=== PATIENT | female | born 2000 | race Caucasian/White ===

== ENCOUNTER 2020-03-25 20:27 | Emergency (ER) | payer BC ==
--- NOTE | 2020-03-25 20:51 | EDM.PDOC ---
ED HPI GENERAL MEDICAL PROBLEM - General Chief Complaint: ENT Problem Stated Complaint: throat pain Time Seen by Provider: 03/25/20 20:32 Source of Information: Reports: Patient History Limitations: Reports: No Limitations - History of Present Illness INITIAL COMMENTS - FREE TEXT/NARRATIVE: Two week history of pharyngitis. Hx of frequent sore throats/tonsillitis. Initially tested for strep and was negative. Pain has continued. Was seen in [place] today and given Keflex but no additional testing performed. Came to our facility crying, saying her throat is swollen and painful. Denies fevers. Denies GI changes. ROS otherwise unremarkable. Denies chance of . Treatments [employer]CIAL [employer]: Reports: NSAIDS - Related Data Allergies Allergy/AdvReac Type Severity Reaction Status Date / Time No Known Allergies Allergy Verified 03/25/20 20:29 Home Meds: Home Meds Venlafaxine [Effexor XR] 1 cap PO DAILY 03/25/20 [History] cephALEXin [Keflex] 500 mg PO TID 03/25/20 [History] hydrOXYzine HCL [hydrOXYzine] 1 tab PO QID PRN 03/25/20 [History] Past Medical History HEENT History: Reports: Other (See Below) (frequent tonsilitis.) Psychiatric History: Reports: Anxiety, Depression Social & Family History - Tobacco Use Smoking Status *Q: Never Smoker - Caffeine Use Caffeine Use: Reports: None - Alcohol Use Alcohol Use History: No - Recreational Drug Use Recreational Drug Use: No Drug Use in Last 12 Months: No ED ROS GENERAL - Review of Systems Review Of Systems: See Below Constitutional: Reports: Decreased Appetite. Denies: Fever, Chills, Malaise, Weakness, Fatigue, Night Sweats, Diaphoresis HEENT: Reports: Throat Pain, Throat Swelling. Denies: Dental Pain, Ear Discharge, Ear Pain, Eye Discharge, Sinus Problem, Vertigo, Vision Change Respiratory: Reports: No Symptoms Cardiovascular: Reports: No Symptoms GI/Abdominal: Reports: No Symptoms : Reports: No Symptoms Musculoskeletal: Reports: No Symptoms Skin: Reports: No Symptoms Neurological: Reports: No Symptoms Psychiatric: Reports: No Symptoms Hematologic/Lymphatic: Reports: No Symptoms ED EXAM, GENERAL - Physical Exam Exam: See Below Exam Limited By: No Limitations General Appearance: Alert, WD/WN, Other (tearful) Eye Exam: Bilateral Eye: EOMI, PERRL Ears: Normal External Exam, Normal Canal, Hearing Grossly Normal, Normal TMs Nose: Normal Inspection Throat/Mouth: Normal Lips, Normal Voice, No Airway Compromise, Other (tonsils red/swollen, uvula midline, small amount exudate noted. ) Head: Atraumatic, Normocephalic Neck: Normal Inspection, Supple, Non-Tender, Full Range of Motion. No: Lymphadenopathy (L), Lymphadenopathy (R) Respiratory/Chest: No Respiratory Distress, Lungs Clear, Normal Breath Sounds, No Accessory Muscle Use Cardiovascular: Regular Rate, Rhythm, No Edema, No Murmur GI/Abdominal: Normal Bowel Sounds, Soft, Non-Tender, No Distention (Female) Exam: Deferred Rectal (Female) Exam: Deferred Back Exam: Normal Inspection Extremities: Normal Range of Motion, Non-Tender, No Pedal Edema, Slow Capillary Refill Neurological: Alert, Oriented, CN II-XII Intact, Normal Cognition, Normal Gait, No Motor/Sensory Deficits Psychiatric: Normal Affect, Normal Mood Skin Exam: Warm, Dry, Intact, Normal Color Course - Vital Signs Last Recorded V/S: Last Vital Signs Temp 37.6 C 03/25/20 21:41 Pulse 78 03/25/20 21:41 Resp 16 03/25/20 21:41 BP 117/76 03/25/20 21:41 Pulse Ox 99 03/25/20 21:41 - Orders/Labs/Meds Orders: Active Orders 24 hr Category Date Time Status CULTURE STREP A CONFIRMATION [RM] Stat Lab 03/25/20 21:00 Results STREP SCRN A RAPID W CULT CONF [RM] Stat Lab 03/25/20 20:38 Ordered UA W/MICROSCOPIC [URIN] Stat Lab 03/25/20 21:06 Ordered Sodium Chloride 0.9% [Saline Flush] Med 03/25/20 21:06 Ordered 10 ml FLUSH ASDIRECTED PRN Saline Lock Insert [OM.PC] Routine Oth 03/25/20 21:06 Ordered Medication Orders Sodium Chloride (Saline Flush) 10 ml FLUSH ASDIRECTED PRN PRN Reason: Keep Vein Open Last Admin: 03/25/20 21:36 Dose: 10 ml Labs: Laboratory Tests 03/25/20 03/25/20 03/25/20 Range/Units 20:55 20:55 20:55 WBC 12.8 H (4.0-10.2) K/uL RBC 5.05 (3.77-5.09) M/uL Hgb 14.9 (11.7-15.5) g/dL Hct 44.2 (34.0-46.0) % MCV 87.5 (84.0-98.0) fL MCH 29.5 (28.2-33.3) pg MCHC 33.7 (31.7-36.0) g/dL RDW 12.6 (11.2-14.1) % Plt Count 281 (150-350) K/uL Neut % (Auto) 77.5 (45.0-80.0) % Lymph % (Auto) 13.0 (10.0-50.0) % Glades % (Auto) 8.8 (2.0-14.0) % Eos % (Auto) 0.5 (0.0-5.0) % Baso % (Auto) 0.2 (0.0-2.0) % Neut # (Auto) 9.90 H (1.40-7.00) K/uL Lymph # (Auto) 1.66 (0.50-3.50) K/uL Glades # (Auto) 1.13 H (0.00-1.00) K/uL Eos # (Auto) 0.07 (0.00-0.50) K/uL Baso # (Auto) 0.02 (0.00-0.20) K/uL Sodium 140 (136-145) mmol/L Potassium 4.4 (3.5-5.1) mmol/L Chloride 104 (98-107) mmol/L Carbon Dioxide 26.0 (21.0-32.0) mmol/L BUN 13 (7-18) mg/dL Creatinine 0.79 (0.51-1.17) mg/dL Est Cr Clr Drug Dosing TNP Estimated GFR (MDRD) > 60 mL/min Glucose 88 (74-106) mg/dL Calcium 10.2 H (8.5-10.1) mg/dL Magnesium 1.8 (1.8-2.4) mg/dL Total Bilirubin 0.5 (0.2-1.0) mg/dL AST 12 L (15-37) U/L ALT 18 (12-78) U/L Alkaline Phosphatase 76 (46-116) IU/L Total Protein 8.0 (6.4-8.2) g/dL Albumin 4.3 (3.4-5.0) g/dL Monoscreen Negative (NEGATIVE) Meds: Medications Generic Name Dose Route Start Last Admin Trade Name Bob PRN Reason Stop Dose Admin Sodium Chloride 10 ml 03/25/20 21:06 03/25/20 21:36 Saline Flush FLUSH 10 ml ASDIRECTED PRN Administration Keep Vein Open Discontinued Medications Generic Name Dose Route Start Last Admin Trade Name Bob PRN Reason Stop Dose Admin Sodium Chloride 1,000 mls @ 999 mls/hr 03/25/20 21:06 03/25/20 21:30 Normal Saline IV 03/25/20 22:06 999 mls/hr .BOLUS ONE Administration Sodium Chloride 1,000 mls @ 999 mls/hr 03/25/20 22:06 03/25/20 22:07 Normal Saline IV 03/25/20 23:06 999 mls/hr .BOLUS ONE Administration Ketorolac Tromethamine 30 mg 03/25/20 21:06 03/25/20 21:30 Toradol IVPUSH 03/25/20 21:07 30 mg ONETIME ONE Administration Methylprednisolone Sodium Succinate 125 mg 03/25/20 21:06 03/25/20 21:32 Solu-Medrol IVPUSH 03/25/20 21:07 125 mg ONETIME ONE Administration Tramadol HCl 50 mg 03/25/20 23:32 Ultram PO 03/25/20 23:33 ONETIME ONE - Re-Assessments/Exams Free Text/Narrative Re-Assessment/Exam: 03/25/20 23:38 WBC mildly elevated. Rapid strep and Glades negative. Strep culture pending. Patient dehydrated. Received IV fluids. Able to urinate after second bag of fluid started. SoluMedrol to help with pharyngeal swelling. Toradol for pain. Single Tramadol PO at time of discharge. Precautions reviewed. Much improved at time of discharge. To follow up as needed. Recommend follow up with primary to consider ENT referral. Departure - Departure Time of Disposition: 23:41 Disposition: Home, Self-Care 01 Condition: Good Clinical Impression: Dehydration, Recurrent tonsillitis - Discharge Information *PRESCRIPTION DRUG MONITORING PROGRAM REVIEWED*: Not Applicable *COPY OF PRESCRIPTION DRUG MONITORING REPORT IN PATIENT ALESHIA: Not Applicable Referrals: PCP,None [Primary Care Provider] - Forms: ED Department Discharge Additional Instructions: OK to take the antibiotic you were given earlier today as directed. Tylenol or ibuprofen for pain as needed. Follow up as needed/stay hydrated. Sepsis Event Note - Focused Exam Vital Signs: Vital Signs Temp Pulse Resp BP Pulse Ox 03/25/20 21:41 37.6 C 78 16 117/76 99 Date Exam was Performed: 03/25/20 Time Exam was Performed: 23:41 - My Orders Last 24 Hours: My Active Orders 03/25/20 20:38 STREP SCRN A RAPID W CULT CONF [RM] Stat 03/25/20 21:00 CULTURE STREP A CONFIRMATION [RM] Stat 03/25/20 21:06 UA W/MICROSCOPIC [URIN] Stat Sodium Chloride 0.9% [Saline Flush] 10 ml FLUSH ASDIRECTED PRN Saline Lock Insert [OM.PC] Routine - Assessment/Plan Last 24 Hours: My Active Orders 03/25/20 20:38 STREP SCRN A RAPID W CULT CONF [RM] Stat 03/25/20 21:00 CULTURE STREP A CONFIRMATION [RM] Stat 03/25/20 21:06 UA W/MICROSCOPIC [URIN] Stat Sodium Chloride 0.9% [Saline Flush] 10 ml FLUSH ASDIRECTED PRN Saline Lock Insert [OM.PC] Routine
[2020-03-25] MEDS ORDERED: Ketorolac 30 MG/ML SDV IVPUSH ONE (21:06)
[2020-03-25] MEDS ORDERED: methylPREDNISolone Sodium Succinate 125 MG/2 ML SDV IVPUSH ONE (21:06)
[2020-03-25] MEDS ORDERED: Sodium Chloride 0.9% 10 ML Syringe FLUSH PRN (21:06)
[2020-03-25] MEDS ORDERED: Sodium Chloride 0.9% 1,000 ML IV ONE ×2 (21:06→22:06)
[2020-03-25 21:16] LABS: CHLORIDE,CL 104 mmol/L (98-107); SODIUM,NA 140 mmol/L (136-145)
[2020-03-25] MEDS ORDERED: traMADol 50 MG Tab PO ONE (23:32)
== END 2020-03-25 23:50 | disposition home or self-care (01) ==
LOC: LL.ED 20:27
DX: J03.91 Acute recurrent tonsillitis, unspecified (principal); F41.9 Anxiety disorder, unspecified; F32.9 Major depressive disorder, single episode, unspecified; Z79.899 Other long term (current) drug therapy
CPT/HCPCS: 36415; 80053; 81001; 83735; 85025; 86308; 87081; 87430; 96361; 96374; 96375; 99284; A9270; J1885; J2930; J7030